=== PATIENT | female | born 1990 | race African-American/Black ===

== ENCOUNTER 2020-05-06 14:02 | Inpatient (IN) ==
[2020-05-06] MEDS ORDERED: ONDANSETRON 4 MG/2 ML VIAL IV PRN (14:18)
[2020-05-06] MEDS ORDERED: BUTORPHANOL 2 MG/ML VIAL IV PRN (14:18)
[2020-05-06] MEDS ORDERED: MEPERIDINE 50 MG/1 ML VIAL IM PRN (14:18)
[2020-05-06] MEDS ORDERED: LACTATED RINGERS 1,000 ML IV SCH (14:30)
[2020-05-06] MEDS ORDERED: DINOPROSTONE VAG GEL 10 MG SYRINGE VAG ONE (14:48)
[2020-05-06 14:54] LABS: Basophils % 0.3 % (0.0-0.8); Eosinophils # 0.1 10*3/uL (0.0-0.87); Eosinophils % 1.7 % (0.00-10.9); Hematocrit 33.4 VOL% (35.7-47.0); Hemoglobin 11.1 GM/DL (12.0-16.0); Immature Granulocytes % 0.1 %; Immature Granulocytes Absolute 0.01 #; Lymphocytes # 1.9 10*3/uL (1.4-4.0); Lymphocytes % 27.8 % (21.3-54.2); Mean Corpuscular HGB Conc 33.2 GM/DL (32-36); Mean Corpuscular Volume 79.7 FL (87-102); Monocytes % 9.5 % (1.7-12.7); Neutrophils % 60.6 % (38.7-73.9); Platelet Count 240 T/CUMM (130-400); Red Blood Count 4.19 MC/CUMM (3.8-5.5); Red Cell Distribution Width 13.6 % (9.3-17.3); White Blood Count 6.9 T/CUMM (4-12)
[2020-05-06 15:15] LABS: Alanine Aminotransferase 15 U/L (13-56); Albumin 2.5 G/DL (3.4-5.0); Alkaline Phosphatase 219 U/L (45-117); Aspartate Amino Transferase 14 U/L (0-37); Bilirubin,Total < 0.39 MG/DL (0.2-1.0); Blood Urea Nitrogen 8 MG/DL (7-18); Calcium 9.2 MG/DL (8.5-10.1); Estimated Glom Filtration Rate 170 ML/MIN; Glucose 73 MG/DL (74-106); Osmolality,Calculated 269.8 MOS/KG (273-304); Total Protein 7.2 G/DL (6.4-8.3)
[2020-05-07] MEDS ORDERED: ALUMINUM/MAGNES/SIMETH MAX STR 30 ML UDCUP PO PRN (01:23)
[2020-05-07] MEDS ORDERED: OXYTOCIN/LR 20 UNIT/1,000 ML BAG IV SCH (02:00)
[2020-05-07] MEDS ORDERED: METHYLERGONOVINE 0.2 MG/1 ML AMP ONE (08:22)
[2020-05-07] MEDS ORDERED: TRANEXAMIC ACID 1,000 MG/10 ML VIAL ONE (08:22)
[2020-05-07] MEDS ORDERED: miSOPROStoL 200 MCG TABLET ONE (08:22)
[2020-05-07] MEDS ORDERED: CARBOPROST TROMETHAMINE 250 MCG/ML AMP IM ONE (08:25)
[2020-05-07] MEDS ORDERED: LIDOCAINE 1% 50 ML VIAL ONE (08:25)
[2020-05-07] MEDS ORDERED: SODIUM CHLORIDE 0.9% 100 ML IV ONE (08:26)
[2020-05-07 09:17] LABS: Cord Venous Blood HCO3 21.6 MMOL/L; Cord Venous Blood PCO2 54.4 MMHG; Cord Venous Blood PO2 18.9
[2020-05-07 09:23] LABS: Cord Arterial Blood HCO3 19.9 MMOL/L
[2020-05-07] MEDS ORDERED: WITCH HAZEL PADS 100/JAR TOP PRN (12:00)
[2020-05-07] MEDS ORDERED: LANOLIN 50% CREAM 0.3 OZ TUBE TOP PRN (12:00)
[2020-05-07] MEDS ORDERED: BISACODYL 10 MG SUPP RECTAL PRN (12:00)
[2020-05-07] MEDS ORDERED: MEASLES/MUMPS/RUBELLA VACCINE 0.5 ML VIAL SUBCUT ONE (12:00)
[2020-05-07] MEDS ORDERED: HYDROCORTISONE 2.5% RECTAL CREAM 30 GM TUBE TOP PRN (12:00)
[2020-05-07] MEDS ORDERED: oxyCODONE/ACETAMINOPHEN 5-325 MG TABLET PO PRN (12:00)
[2020-05-07] MEDS ORDERED: RHO(D) IMMUNE GLOBULIN 300 MCG SYRINGE IM ONE (12:00)
[2020-05-07] MEDS ORDERED: OXYTOCIN/LR 20 UNIT/1,000 ML BAG IV ONE (12:00)
[2020-05-07] MEDS ORDERED: BENZOCAINE 20%/MENTHOL 0.5% SPRAY 56 GM CAN TOP PRN (12:00)
[2020-05-07] MEDS ORDERED: ACETAMINOPHEN 325 MG TABLET PO PRN (12:00)
[2020-05-07] MEDS ORDERED: DIPH/TET/ACEL PERT BOOSTER VACCINE 0.5 ML VIAL IM ONE (12:00)
[2020-05-07] MEDS: IBUPROFEN 800 MG TABLET PO PRN ×2 (12:15→20:18)
[2020-05-07] MEDS: oxyCODONE/ACETAMINOPHEN 5-325 MG TABLET PO PRN (20:18)
[2020-05-07] MEDS: DOCUSATE SODIUM 100 MG CAPSULE PO SCH (20:35)
[2020-05-08 07:01] LABS: Basophils % 0.2 % (0.0-0.8); Eosinophils # 0.2 10*3/uL (0.0-0.87); Eosinophils % 1.9 % (0.00-10.9); Hematocrit 32.1 VOL% (35.7-47.0); Hemoglobin 10.5 GM/DL (12.0-16.0); Immature Granulocytes % 0.4 %; Immature Granulocytes Absolute 0.04 #; Lymphocytes # 3.3 10*3/uL (1.4-4.0); Lymphocytes % 28.5 % (21.3-54.2); Mean Corpuscular HGB Conc 32.7 GM/DL (32-36); Mean Corpuscular Volume 82.1 FL (87-102); Mean Platelet Volume 10.4 FL (9.6-12.0); Monocytes % 7.8 % (1.7-12.7); Neutrophils % 61.2 % (38.7-73.9); Platelet Count 231 T/CUMM (130-400); Red Blood Count 3.91 MC/CUMM (3.8-5.5); Red Cell Distribution Width 13.9 % (9.3-17.3); White Blood Count 11.4 T/CUMM (4-12)
[2020-05-08] MEDS: IBUPROFEN 400 MG TABLET PO PRN ×2 (07:51→20:03)
[2020-05-08] MEDS: DOCUSATE SODIUM 100 MG CAPSULE PO SCH ×2 (07:51→21:10)
[2020-05-08] MEDS: oxyCODONE/ACETAMINOPHEN 5-325 MG TABLET PO PRN ×2 (07:52→21:12)
[2020-05-09] MEDS: DOCUSATE SODIUM 100 MG CAPSULE PO SCH ×2 (07:31→08:19)
[2020-05-09] MEDS: IBUPROFEN 400 MG TABLET PO PRN (08:20)
[2020-05-09 10:48] VITALS: BP 107/59
== END 2020-05-09 13:10 | disposition home or self-care (01) | DRG 560 ==
LOC: N.LD 14:02 → N.LDOUT 14:02 → N.LD 14:05 → N.LDOUT 14:06 → N.LD 14:17 → N.OB 05-07 12:34
PROVIDERS: ADMIT Obstetrics & Gynecology; ATTEND Obstetrics & Gynecology